=== PATIENT | female | born 1985 | race African-American/Black ===

== ENCOUNTER 2024-09-15 11:01 | Emergency (ER) | payer SELFPAY ==
[~2024-09-15] VITALS: Ht 162.6 cm; Wt 72.0 kg
[2024-09-15 11:04] VITALS: O2SAT 100
[2024-09-15 11:24] VITALS: BP 165/98; PULSE 82; RESP 16; TEMP 98.3; O2SAT 100
[2024-09-15] MEDS ORDERED: IBUPROFEN 600MG TABLET PO STA (13:40)
[2024-09-15] MEDS ORDERED: AMLODIPINE 5MG TABLET PO ONE (13:45)
== END 2024-09-15 13:56 | disposition left against medical advice (07) ==
LOC: ER 11:01
DX: R07.89 Other chest pain (principal); I10 Essential (primary) hypertension
CPT/HCPCS: 99281

== ENCOUNTER 2024-09-21 19:40 | Emergency (ER) | payer SELFPAY ==
[~2024-09-21] VITALS: Ht 167.6 cm; Wt 81.0 kg
[2024-09-21 20:17] VITALS: O2SAT 100
[2024-09-21] MEDS ORDERED: NAPR-1176 MT (23:37)
[2024-09-21 23:49] VITALS: BP 157/82; PULSE 88; RESP 18; TEMP 36.8; O2SAT 100
== END 2024-09-21 23:52 | disposition home or self-care (01) ==
LOC: ER 19:40
DX: R07.89 Other chest pain (principal); I10 Essential (primary) hypertension; Z79.1 Long term (current) use of non-steroidal anti-inflammatories (NSAID)
CPT/HCPCS: 71045; 99283